=== PATIENT | male | born 1935 | race Two or more races ===

== ENCOUNTER 2023-05-02 12:23 | Emergency (ER) | payer SELFPAY ==
[~2023-05-02] VITALS: Ht 167.6 cm; Wt 77.0 kg
[2023-05-02 12:25] VITALS: O2SAT 97
[2023-05-02] MEDS ORDERED: HYDR-4001 MT ×3 (15:05→15:14)
[2023-05-02 15:19] VITALS: BP 140/79; PULSE 72; RESP 19; TEMP 98.4
== END 2023-05-02 15:38 | disposition home or self-care (01) ==
LOC: ER 12:23
DX: S22.41XA Multiple fractures of ribs, right side, initial encounter for closed fracture (principal); E11.9 Type 2 diabetes mellitus without complications; I10 Essential (primary) hypertension; Z88.0 Allergy status to penicillin; W01.0XXA Fall on same level from slipping, tripping and stumbling without subsequent striking against object, initial encounter; Y93.89 Activity, other specified; Y92.89 Other specified places as the place of occurrence of the external cause; Y99.8 Other external cause status
CPT/HCPCS: 71250; 72131; 99284